=== PATIENT | female | born 1985 | race Caucasian/White ===

== ENCOUNTER 2024-10-08 18:57 | Emergency (ER) | payer OTHER | END 2024-10-08 19:42 | disposition home or self-care (01) | LOC: MW.ED 18:57 | DX: S09.90XA Unspecified injury of head, initial encounter (principal); Z75.8 Other problems related to medical facilities and other health care; W01.198A Fall on same level from slipping, tripping and stumbling with subsequent striking against other object, initial encounter | CPT/HCPCS: 70450; 70450-26; 99283 ==